=== PATIENT | male | born 1990 | race Caucasian/White ===

== ENCOUNTER 2017-08-30 13:17 | Emergency (ER) | payer OTHER ==
[~2017-08-30] VITALS: Ht 193 cm; Wt 144.7 kg
[2017-08-30 15:13] LABS: HEMATOCRIT 45.3 % (38.0-50.0); HEMOGLOBIN 15.7 G/DL (12.5-16.6); MCH 28.6 PG (29.0-34.0); MCHC 34.7 G/DL (30.0-36.0); MCV 82.7 FL (86-99); PLATELET COUNT 228 K/uL (156-360); RBC DIS.WIDTH-CV 12.4 % (11.8-14.6); RBC DIS.WIDTH-SD 37.6 % (39-53); RED BLOOD COUNT 5.48 M/uL (4.00-5.50); WHITE BLOOD COUNT 6.1 K/uL (4.1-10.2)
[2017-08-30 15:22] LABS: ALBUMIN 4.5 g/dL (3.2-4.8); CHLORIDE 103 mEq/L (99-109); POTASSIUM 4.2 mEq/L (3.7-5.4); SODIUM 138 mEq/L (136-147)
[2017-08-30 15:24] LABS: GLUCOSE 98 mg/dL (70-99); TOTAL PROTEIN 7.9 g/dL (6.4-8.3)
[2017-08-30 15:26] LABS: TOTAL BILIRUBIN 0.9 mg/dL (0.0-1.0)
[2017-08-30 15:28] LABS: ALKALINE PHOSPHATASE 65 IU/L (3-129); CREATININE 1.2 mg/dL (0.6-1.3)
[2017-08-30 15:29] LABS: UREA NITROGEN (BUN) 11 mg/dL (9-23)
[2017-08-30 15:30] LABS: AST (GOT) 20 IU/L (2-34)
[2017-08-30 15:31] LABS: ALT (GPT) 29 IU/L (3-49)
[2017-08-30 15:35] LABS: GFR ESTIMATE (CALCULATED) > 59 mL/min/ (58.99-99999)
[2017-08-30] MEDS ORDERED: SERTRALINE HCL100 MG PO (16:54)
[2017-08-30] MEDS ORDERED: FIORICET 50-301 EAC1 PO (18:01)
[2017-08-30 18:59] VITALS: BP 145/86
== END 2017-08-30 18:59 | disposition home or self-care (01) ==
LOC: EME 13:17
PROVIDERS: Nurse Practitioner Family
DX: G44.82 Headache associated with sexual activity (principal); R11.0 Nausea; R42 Dizziness and giddiness
CPT/HCPCS: 70470; 80053; 85027; 93005; 99281; 99284; J1100; J1200; J1885; J2765; J7030